=== PATIENT | female | born 1930 | race Caucasian/White ===

== ENCOUNTER → 2016-12-30 | Day surgery (SDC) | payer OTHER, MEDICARE ==
[~2016-12-30] VITALS: Ht 163.8 cm; Wt 48.1 kg
--- NOTE | 2016-12-30 12:34 | Operative Report ---
Operative/Inv Procedure Report Surgery Date: 12/30/16 Name of Procedure: Cystoscopy and TURBT Pre-Operative Diagnosis: Bladder tumor Post-Operative Diagnosis: same Estimated Blood Loss: scant (scant) Surgeon/Administrative Director: Ravi CHRISTOPHER,CARROLL Kemp Anesthesia: spinal Drains: 20 fr 2-way wilson Specimens: bladder tumor chips Complications: none Condition: stable Operative Indication: Bladder tumor and hematuria Operative/Procedure Note Note: The patient was taken to the OR and identified. She was placed in the supine position on the cystoscopy table and a time out executed appropriately. Spinal anesthesia was given. She was then placed in the dorsal lithotomy position and prepped and draped in the usual manner for cystoscopy. A surgical pause was executed appropriately. The 22 fr cystoscope was placed in the bladder and cystoscopy performed. There was a significant bladder tumor seen at the bladder neck originated from the 1 o'clock to 4 o'clock position. There was several other small tumors seen. The ureteral orifices were normal in appearance and location. The cystoscope was removed and the 26 fr resectoscope placed using the obterator. The working element was placed. All visible bladder tumor was resected. The luzmaria evacuator was used to remove all bladder tumor chips from the bladder. The base of each resection site was then fulgerated. No active bleeding was seen at this point. A 20 fr wilson was placed. Findings: Multifocal, superficial-appearing bladder tumor. Largest tumor seen at the bladder neck between the 1 and 4 o'clock positions Discharge Disposition: PACU
== END ==
LOC: STS 03:52
DX: C67.8 Malignant neoplasm of overlapping sites of bladder (principal); Z86.73 Personal history of transient ischemic attack (TIA), and cerebral infarction without residual deficits; J43.9 Emphysema, unspecified; F17.209 Nicotine dependence, unspecified, with unspecified nicotine-induced disorders; I73.9 Peripheral vascular disease, unspecified; I10 Essential (primary) hypertension
CPT/HCPCS: 88307; J0690; J2250